=== PATIENT | male | born 1960 | race Native Hawaiian/Other Pacific Islander ===

== ENCOUNTER 2018-05-25 01:39 | Emergency (ER) | payer BC ==
[~2018-05-25] VITALS: Ht 182.9 cm; Wt 152.9 kg
[2018-05-25 02:23] LABS: PLATELET COUNT 251 K/uL (142-355)
[2018-05-25 04:16] LABS: PARTIAL THROMBOPLASTIN TIME 23.8 SECONDS (24.5-33.6)
[2018-05-25 04:44] VITALS: BP 145/74; TEMP 98.9
== END 2018-05-25 04:45 | disposition short-term general hospital (02) ==
LOC: ED 01:39
PROVIDERS: Family Medicine
DX: I20.8 Other forms of angina pectoris (principal); R07.89 Other chest pain; I45.19 Other right bundle-branch block; I10 Essential (primary) hypertension; I25.10 Atherosclerotic heart disease of native coronary artery without angina pectoris; R73.02 Impaired glucose tolerance (oral)
CPT/HCPCS: 80053; 84484; 85027; 85610; 85730; 93005; 96365; 96375; 99285; J1644

== ENCOUNTER → 2018-05-25 | Outpatient (CLI) | payer BC | END | disposition short-term general hospital (02) | LOC: AMB 04:29 | DX: R07.89 Other chest pain (principal); I45.19 Other right bundle-branch block; I10 Essential (primary) hypertension; I25.10 Atherosclerotic heart disease of native coronary artery without angina pectoris; R73.02 Impaired glucose tolerance (oral) | CPT/HCPCS: A0425; A0429 ==